=== PATIENT | male | born 1940 ===

== ENCOUNTER 2025-02-20 11:24 | Outpatient (AMB) | payer MEDICARE, OTHER, SELFPAY ==
--- NOTE | 2025-02-20 11:49 | A.OFFVIS_ITS ---
Intake Visit Reasons: 2m MCI Accompanied by: Spouse Allergies Penicillins Allergy (Unknown, Verified 02/20/25 11:59) Unknown Medication List - Last Reconciled 02/20/25 by Hanna Rodriguez CNP aspirin 81 mg PO DAILY cholecalciferol (vitamin D3) 1 PO DAILY docusate sodium 100 mg PO BID PRN folic acid 1 mg PO DAILY furosemide 40 mg PO DAILY lisinopril 40 mg PO DAILY pyridoxine (vitamin B6) 50 mg PO DAILY rivaroxaban mg PO rivaroxaban (Xarelto) 2.5 mg PO BID tamsulosin 0.4 mg PO BEDTIME HPI Comments Details: 84-year-old man with hypertension, type 2 diabetes, and chronic kidney disease seen for cognitive decline. He does not think there is a problem with his memory, however his of 48-years does not agree. In 08/2024, he fell and hit his head, and was seen at [facility] where he had CT scan done. He said that walking has become somewhat difficult because his feet hurt. No incontinence. He fell outside in early 01/2025 and hit his head. He was unsure how fall happened and it was unwitnessed. His said he was slightly confused after. He was seen at [facility] where he had imaging done which apparently showed brain bleed. He fractured his R clavicle and 2 ribs, and RUE was in sling. His warfarin was discontinued, and he was discharged on low dose aspirin and Xarelto. There were some other medication changes, but his does not have complete updated list. No records are available for review at this time. He had angiogram a few weeks ago and has an appointment with endovascular next week. No further falls, walking with cane. Memory has been stable. Sleep was okay. [facility] Medical History (Updated 02/20/25 @ 11:54 by Hanna Rodriguez CNP) MCI (mild cognitive impairment) Review of Systems Const Denies chills, Denies daytime sleepiness, Denies difficulty sleeping, Denies fatigue, Denies fever(s), Denies frequent falls, Denies headache(s), Denies increased appetite, Denies poor appetite, Denies snoring, Denies weakness, Denies weight gain and Denies weight loss Eyes Denies loss of vision ENT Denies vertigo, Denies dizziness, Denies headache(s) and Denies neck pain Card Denies chest pain at rest, Denies chest pain with activity, Denies syncope, Denies leg edema, Denies palpitations, Denies dyspnea and Denies dyspnea on exertion Resp Denies cough, Denies dyspnea, Denies dyspnea on exertion and Denies snoring GI Denies abdominal pain, Denies constipation, Denies heartburn, Denies diarrhea and Denies nausea Denies urinary frequency, Denies urinary incontinence and Denies urinary urgency Musc Denies abnormal gait, Denies back pain, Denies myalgias, Denies arthralgias, Denies neck pain, Denies numbness and Denies tingling Neuro Denies abnormal gait, Denies vertigo, Denies dizziness, Denies syncope, Denies frequent falls, Denies headache(s), Denies lack of coordination, Denies loss of vision, Reports memory loss, Denies numbness, Denies Other visual disturbances, Denies restless legs, Denies seizure-like activity, Denies tingling, Denies paresthesias, Denies tremor(s) and Denies weakness Psych Denies anxiety, Denies depression, Denies auditory hallucinations, Reports memory loss and Denies visual hallucinations Endo Denies fatigue and Denies palpitations Physical Exam Const Other: General Appearance:? normal, in no acute distress. Heart:? S1, S2 normal, no murmurs. Lungs:? clear anteriorly and posteriorly. Musculoskeletal:? normal. Extremities:? no edema. Psych:? alert, as below. Neuro Other: Abnormal Neurological Findings:?MMSE 19/30. Walking with cane. RUE sling, unable to test RUE strength or FTN. Mental Status: alert, as below. Cranial Nerves: Pupils are equal, round, and reactive to light. External ocular muscles are intact. Visual dominguez are full, no ptosis. Face is symmetrical, no facial weakness or droop. Facial sensations are normal. Tongue protrudes in midline. Palate elevates symmetrically. Shoulder shrugging is normal Motor Examination: Normal muscle tone, bulk and strength. No atrophy or fasciculations. No drift of the extended upper extremities. DTR 2+. Plantars are flexor. Sensory Exam: Normal light touch, temperature, pinprick, vibration, and joint- position sensations. Rhomberg sign is absent. Coordination: No ataxia. No titubation. Gait Exam: With cane. Cerebellar Signs: [id number] is okay. Extrapyramidal System: No tremor, rigidity with normal facial expressions. No bradykinesia. No bradyphrenia. Normal arm swing and posture. No propulsion or retropulsion. Speech: Normal. MMSE Level of Consciousness: Alert. Orientation: Knows correct season. Does not know year, month, date, or day. Knows correct city, county and state. Knows correct location. Does not know floor. Registration: Able to register 3 objects. Attention: Unable to do serial 7's. Recall: Able to recall 2 out of 3 objects. Language: Normal spontaneous speech, fluency, repetition, naming, comprehension, reading, and writing. Total Score: 19/30. Results Reviewed Results Reviewed: 12/2024 labs: BUN/Creat 52/1.51, TSH 0.43, vitamin B12 and folate ok 08/2024 CT head/brain at [facility]: No acute abnormality of head or cervical spine. Assessment & Plan Assessment & Plan (1) MCI (mild cognitive impairment): Code(s): G31.84 - Mild cognitive impairment of uncertain or unknown etiology Category: Medical Plan: No records available at this time, will request records from [facility]. Lab results reviewed. I recommend EEG, but his believes he may have had this done already and prefers to hold off until records can be obtained and reviewed. Bring updated medication list to next appointment. Coding Level of Care Code Est Pt Level 4 (02455) Diagnoses MCI (mild cognitive impairment) G31.84
--- OUTSIDE RECORDS SUMMARY | 2025-02-20 13:07 | XMS_ITS | Clinical Summary ---
Author Organization [address] [facility] Address [address] [place] [address] Phone Care Team Providers Care Cigarette Machines Mechanic Name Role Phone Marilu Sanford MD Primary Care Provider [phone] Social History Tobacco Use Types Packs/Day Years Used Date Smoking Tobacco: Never Assessed Sex and Gender Information Value Date Recorded Sex Assigned at Not on file Legal Sex Male 6:49 AM EDT Gender Identity Not on file Sexual Orientation Not on file Plan of Treatment Health Maintenance Due Date Last Done Comments DTaP,Tdap,and Td Vaccines (1 - Tdap) 12/09/1959 Pneumococcal Vaccine: 50+ Ye ars (1 of 1 - PCV) 1990 Zoster Vaccines (1 of 2) 1990 RSV Immunization Adult Patie nts (1 - 1-dose 75+ series) 12/09/2015 COVID-19 Vaccine ( - 2023-2 5 season) 2024 Depression Screening 06/21/2024 Cholesterol Screening (Lipid Panel) 09/11/2024 Falls Risk Assessment 09/11/2024 Medicare Annual Wellness Visit 09/11/2024 Social Influencers of Health Screening 09/11/2024 Influenza Vaccine (#1) 2025 HIB Vaccines Aged Out No longer eligi ble based on patient's age to complete this topic HPV Vaccines Aged Out No longer eligi ble based on patient's age to complete this topic Hepatitis A Vaccines Aged Out No long er eligible based on patient's age to complete this topic Hepatitis B Vaccines Aged Out No long er eligible based on patient's age to complete this topic IPV Vaccines Aged Out No longer eligi ble based on patient's age to complete this topic MMR Vaccines Aged Out No longer eligi ble based on patient's age to complete this topic Meningococcal ACWY Vaccine Aged Out N o longer eligible based on patient's age to complete this topic Meningococcal B Vaccine Aged Out No l onger eligible based on patient's age to complete this topic RSV Immunization Patients Un [place] 20 months Aged Out No longer eligible b ased on patient's age to complete this topic Varicella Vaccines Aged Out No longer eligible based on patient's age to complete this topic Insurance MEDICARE [facility] Care Teams Cigarette Machines Mechanic Relationship Specialty Start Date End Date Marilu Sanford MD [address] [facility] [address] [place] [phone] PCP - General Internal Medicine 09/11/24
--- OUTSIDE RECORDS SUMMARY | 2025-02-20 13:07 | XMS_ITS | Encounter Summary ---
Author Organization [facility] Address [address] [place] [address] Care Team Providers Care Retail Experience Specialist Name Role Phone Marilu Sanford MD Primary Care Provider Encounter Details Date Type Department Care Team (Late st Contact Info) Description 09/11/2024 Lab Requisition [facility] - Main Lab [address] [facility] [place] [address] Kuldip Levine MD [address] [facility] [address] [place] [phone] Personal history of malignant neoplasm of bladder Social History Tobacco Use Types Packs/Day Years Used Date Smoking Tobacco: Never Assessed Sex and Gender Information Value Date Recorded Sex Assigned at Not on file Legal Sex Male 6:49 AM EDT Gender Identity Not on file Sexual Orientation Not on file documented as of this encounter Plan of Treatment Not on file documented as of this encounter Procedures Procedure Name Priority Date/Time Associated Diagnosis Comments AP OUTSIDE CONSULT Routine 09/03/2024 12 :00 AM EDT Personal history of malignant neoplasm of bladder documented in this encounter Results * Anatomic pathology outside consult (09/03/2024 12:00 AM EDT) Final Diagnosis URINE-VOIDED: -NEGATIVE FOR HIGH-GRADE UROTHELIAL CARCINOMA 09/11/2024 10:42 AM EDT [facility] Clinical Information History of bladder neoplasm (malignant) Z85.51 Urine Cytology 09/11/2024 10:42 AM EDT [facility] Gross Description A. Urine, Voided, [id number]: Received one ThinPrep slide for cytology. 09/11/2024 10:42 AM EDT [facility] Disclaimer Unless otherwise specified, all tissue is 10% NB formalin fixed and paraffin embedded. 09/11/2024 10:42 AM EDT [facility] Tissue Urine specimen from urethra / Unknown 09/03/2024 09/11/2024 7:31 AM EDT us Kuldip Levine MD LAB PATHOLOGY ORDERABLES Final R esult [facility] [address] [place] [address], documented in this encounter Visit Diagnoses Diagnosis Personal history of malignant neoplasm of bladder documented in this encounter Care Teams Retail Experience Specialist Relationship Specialty Start Date End Date Marilu Sanford MD [address] [place] [phone] PCP - General Internal Medicine 09/11/24 documented as of this encounter
--- OUTSIDE RECORDS SUMMARY | 2025-02-20 13:08 | XMS_ITS | Encounter Summary ---
Author Organization [facility] Address [address] [place] [address] Care Team Providers Care Route Specialist Name Role Phone Marilu Sanford MD Primary Care Provider Encounter Details Date Type Department Care Team (Late st Contact Info) Description 09/11/2024 Lab Requisition [facility] - Main Lab [address] [facility] [place] [address] Kuldip Levine MD [address] [facility] [address] [place] [phone] Personal history of malignant neoplasm of bladder [...] Associated Diagnosis Comments AP OUTSIDE CONSULT Routine 09/04/2024 12 :00 AM EDT Personal history of malignant neoplasm of bladder documented in this encounter Results * Anatomic pathology outside consult (09/04/2024 12:00 AM EDT) Final Diagnosis URINE-VOIDED: -NEGATIVE FOR HIGH-GRADE UROTHELIAL CARCINOMA -Acute inflammation 09/11/2024 10:43 AM EDT [facility] Clinical Information History of bladder neoplasm (malignant) Z85.51 Urine Cytology 09/11/2024 10:43 AM EDT [facility] Gross Description A. Urine, Voided, [id number]: Received one ThinPrep slide for cytology. 09/11/2024 10:43 AM EDT [facility] Disclaimer Unless otherwise specified, all tissue is 10% NB formalin fixed and paraffin embedded. 09/11/2024 10:43 AM EDT [facility] Tissue Urine specimen from urethra / Unknown 09/04/2024 09/11/2024 7:35 AM EDT us Kuldip Levine MD LAB PATHOLOGY ORDERABLES Final R esult [facility] [address] [place] [address], documented in this encounter Visit Diagnoses Diagnosis Personal history of malignant neoplasm of bladder documented in this encounter Care Teams Route Specialist Relationship Specialty Start Date End Date Marilu Sanford MD [address] [place] [phone] PCP - General Internal Medicine 09/11/24 documented as of this encounter
== END 2025-02-20 12:21 | disposition home or self-care (01) ==
LOC: HO.HSM 11:25
PROVIDERS: PCP Internal Medicine; Visit Provider Registered Nurse
DX: G31.84 Mild cognitive impairment of uncertain or unknown etiology (principal)
CPT/HCPCS: 99214

== ENCOUNTER → 2025-02-20 11:24 | Outpatient (BNVA) | payer MEDICARE, OTHER, SELFPAY | PROVIDERS: PCP Internal Medicine; Visit Provider Registered Nurse | DX: G31.84 Mild cognitive impairment of uncertain or unknown etiology (principal) | CPT/HCPCS: 99212 ==

== ENCOUNTER 2025-05-01 12:14 | Outpatient (AMB) | payer MEDICARE, OTHER, SELFPAY ==
--- NOTE | 2025-05-01 12:28 | MHC.OFFVIS ---
Intake Visit Reasons: 2M MCI Allergies Penicillins Allergy (Unknown, Verified 02/20/25 11:59) Unknown HPI Comments Details: 84 years old man with a history of a fall in January of 2025 from unknown cause and mild cognitive impairment. [facility] Medical History (Updated 05/01/25 @ 13:44 by Saran Rubio MD) MCI (mild cognitive impairment) Assessment & Plan Assessment & Plan (1) Seizure disorder: Comment: EEG at [facility] in 2024: Limited but ok CT brain WO at [place] in Jan 2025: Punctate hyperintensity in R temp lobe, trace blood products in the R lateral ventricle (reported) Code(s): G40.909 - Epilepsy, unspecified, not intractable, without status epilepticus Category: Medical Plan Impression: a: Dementia with behavioral symptoms, mild to moderate b: Possible seizure disorder Rec: a: EEG b: Sertraline 25mg one in am Orders: Orders EEG 48hr Ambulatory Today G40.909 - Epilepsy, unspecified, not intractable, without status epilepticus Medications: New sertraline 25 mg PO DAILY 90 tabs 1RF Coding Level of Care Code Est Pt Level 4 (17837) Diagnoses Seizure disorder G40.909 Time Spent (min) 60 Comment Time spent to gather his records from [facility] and also from [facility]
--- OUTSIDE RECORDS SUMMARY | 2025-05-01 14:04 | XMS_ITS | Encounter Summary ---
Author Organization [facility] Address [address] [place] [address] Care Team Providers Care Post Exchange Manager Name Role Phone Marilu Sanford MD Primary Care Provider Encounter Details Date Type Department Care Team (Late st Contact Info) Description 09/11/2024 Lab Requisition [facility] - Main Lab [address] [facility] [place] [address] Kuldip Levine MD [address] [facility] [address] [place] [phone] Personal history of malignant neoplasm of bladder [...] HIGH-GRADE UROTHELIAL CARCINOMA 09/11/2024 10:42 AM EDT [facility] Clinical Information History of bladder neoplasm (malignant) Z85.51 Urine Cytology 09/11/2024 10:42 AM EDT [facility] Gross Description A. Urine, Voided, [id number]: Received one ThinPrep slide for cytology. 09/11/2024 10:42 AM EDT [facility] Disclaimer Unless otherwise specified, all tissue is 10% NB formalin fixed and paraffin embedded. 09/11/2024 10:42 AM EDT [facility] Tissue Urine specimen from urethra / Unknown 09/03/2024 09/11/2024 7:31 AM EDT us Kuldip Levine MD LAB PATHOLOGY ORDERABLES Final R esult [facility] [address] [place] [address], documented in this encounter Visit Diagnoses Diagnosis Personal history of malignant neoplasm of bladder documented in this encounter Care Teams Post Exchange Manager Relationship Specialty Start Date End Date Marilu Sanford MD [address] [place] [phone] PCP - General Internal Medicine 09/11/24 documented as of this encounter
--- OUTSIDE RECORDS SUMMARY | 2025-05-01 14:04 | XMS_ITS | Encounter Summary ---
Author Organization [facility] Address [address] [place] [address] Care Team Providers Care Pile Driving Nozzleman Name Role Phone Marilu Sanford MD Primary Care Provider Encounter Details Date Type Department Care Team (Late st Contact Info) Description 09/11/2024 Lab Requisition [facility] - Main Lab [address] [facility] [place] [address] Kuldip Levine MD [address] [facility] [address] [place] [phone] Personal history of malignant neoplasm of bladder [...] CARCINOMA -Acute inflammation 09/11/2024 10:43 AM EDT [facility] Clinical Information History of bladder neoplasm (malignant) Z85.51 Urine Cytology 09/11/2024 10:43 AM EDT [facility] Gross Description A. Urine, Voided, [id number]: Received one ThinPrep slide for cytology. 09/11/2024 10:43 AM EDT [facility] Disclaimer Unless otherwise specified, all tissue is 10% NB formalin fixed and paraffin embedded. 09/11/2024 10:43 AM EDT [facility] Tissue Urine specimen from urethra / Unknown 09/04/2024 09/11/2024 7:35 AM EDT us Kuldip Levine MD LAB PATHOLOGY ORDERABLES Final R esult [facility] [address] [place] [address], documented in this encounter Visit Diagnoses Diagnosis Personal history of malignant neoplasm of bladder documented in this encounter Care Teams Pile Driving Nozzleman Relationship Specialty Start Date End Date Marilu Sanford MD [address] [place] [phone] PCP - General Internal Medicine 09/11/24 documented as of this encounter
--- OUTSIDE RECORDS SUMMARY | 2025-05-01 14:04 | XMS_ITS | Clinical Summary ---
Author Organization [address] [facility] Address [address] [place] [address] Phone Care Team Providers Care Dial Lathe Operator Name Role Phone Marilu Sanfrod MD Primary Care Provider Social History Tobacco Use Types Packs/Day Years [...] nts (1 - 1-dose 75+ series) 12/09/2015 Depression Screening 06/21/2024 Cholesterol Screening (Lipid Panel) 09/11/2024 Falls Risk Assessment 09/11/2024 Medicare Annual Wellness Visit 09/11/2024 Social Influencers of Health Screening 09/11/2024 COVID-19 Vaccine (1 - 2023-2 5 season) 2025 Influenza Vaccine (#1) 2025 HIB Vaccines Aged [...] age to complete this topic Insurance MEDICARE [facility] Care Teams Dial Lathe Operator Relationship Specialty Start Date End Date Marilu Sanford MD [address] [facility] 1 [place] [address] PCP - General Internal Medicine 09/11/24
== END 2025-05-01 13:49 | disposition home or self-care (01) ==
LOC: HO.HSM 12:15
PROVIDERS: PCP Internal Medicine; Visit Provider Psychiatry & Neurology Neurology
DX: G40.909 Epilepsy, unspecified, not intractable, without status epilepticus (principal)
CPT/HCPCS: 99214

== ENCOUNTER → 2025-05-01 12:14 | Outpatient (BNVA) | payer MEDICARE, OTHER, SELFPAY | PROVIDERS: PCP Internal Medicine; Visit Provider Psychiatry & Neurology Neurology | DX: G31.84 Mild cognitive impairment of uncertain or unknown etiology (principal); G40.909 Epilepsy, unspecified, not intractable, without status epilepticus | CPT/HCPCS: 99212 ==